=== PATIENT | female | born 1985 | race Hispanic/Latino ===

== ENCOUNTER 2017-05-10 19:15 | Emergency (ER) | payer SELFPAY ==
[~2017-05-10] VITALS: Ht 152.4 cm; Wt 63.5 kg
[2017-05-10] MEDS ORDERED: ACETAMINOPHEN 325 MG TAB PO ONE (20:00)
== END 2017-05-10 20:02 | disposition home or self-care (01) ==
LOC: FSED 19:15
DX: R19.02 Left upper quadrant abdominal swelling, mass and lump (principal); J45.909 Unspecified asthma, uncomplicated
CPT/HCPCS: 99282